=== PATIENT | male | born 1955 | race Caucasian/White ===

== ENCOUNTER 2021-02-25 13:40 | Outpatient (CLI) | payer OTHER ==
[~2021-02-25 13:40] MED LIST: Iopamidol 370 76% 100 ML VIAL ONE
== END 2021-02-25 13:41 | disposition home or self-care (01) ==
LOC: BICCT 13:40
PROVIDERS: ATTEND Radiology Radiation Oncology
DX: C44.329 Squamous cell carcinoma of skin of other parts of face (principal); I65.21 Occlusion and stenosis of right carotid artery; M79.89 Other specified soft tissue disorders
CPT/HCPCS: 70470; 70491; 82565; Q9967

== ENCOUNTER 2021-02-25 13:50 | Outpatient (CLI) | payer OTHER | END 2021-02-25 13:51 | disposition home or self-care (01) | LOC: BICCT 13:50 | PROVIDERS: ATTEND Radiology Radiation Oncology | DX: Z12.2 Encounter for screening for malignant neoplasm of respiratory organs (principal); F17.210 Nicotine dependence, cigarettes, uncomplicated; J44.9 Chronic obstructive pulmonary disease, unspecified | CPT/HCPCS: 71271 ==

== ENCOUNTER 2023-07-28 07:01 | Outpatient (CLI) | payer MEDICARE | END 2023-07-28 07:02 | disposition home or self-care (01) | LOC: BICULT 07:01 | PROVIDERS: ATTEND Physician Assistant | DX: Z13.6 Encounter for screening for cardiovascular disorders (principal); Z12.2 Encounter for screening for malignant neoplasm of respiratory organs; F17.210 Nicotine dependence, cigarettes, uncomplicated; J43.9 Emphysema, unspecified; J98.4 Other disorders of lung; K22.89 Other specified disease of esophagus | CPT/HCPCS: 71271; 76775 ==